=== PATIENT | female | born 1985 | race Caucasian/White ===

== ENCOUNTER 2017-06-20 12:41 | Outpatient (CLI) | payer BC ==
[2017-06-20 13:16] LABS: APPEARANCE,URINE SLIGHTLY-CLOUDY; BILIRUBIN,URINE NEGATIVE (NEGATIVE); COLOR,URINE YELLOW; GLUCOSE, URINE NEGATIVE (NEGATIVE); KETONES,URINE 20 mg/dL (NEGATIVE); LEUKOCYTE ESTERASE,URINE TRACE (NEGATIVE); NITRITE,URINE NEGATIVE (NEGATIVE); PROTEIN,URINE NEGATIVE (NEGATIVE); URINE SPECIFIC GRAVITY 1.013; UROBILINOGEN,URINE NEGATIVE mg/dL (<2.0)
[2017-06-20 13:30] LABS: URINE AMPHETAMINES SCREEN NEGATIVE; URINE BARBITURATES SCREEN NEGATIVE; URINE BENZODIAZEPINES SCREEN NEGATIVE; URINE COCAINE SCREEN NEGATIVE; URINE MARIJUANA (THC) SCREEN NEGATIVE; URINE METHADONE SCREEN NEGATIVE; URINE PHENCYCLIDINE SCREEN NEGATIVE
[2017-06-20 13:33] LABS: ABSOLUTE LYMPHOCYTES (AUTO) 1.2 10^3/uL (0.5-4.7); ABSOLUTE MONOCYTES (AUTO) 0.6 10^3/uL (0.1-1.4); BASOPHILS % (AUTO) 0.2 % (0-2); HEMATOCRIT 37.5 % (36.0-47.0); LYMPHOCYTES % (AUTO) 10.7 % (13-45); MEAN CORPUSCULAR HEMOGLOBIN 31.3 pg (27.0-33.4); MEAN CORPUSCULAR HGB CONC 34.8 g/dL (32.0-36.0); MEAN CORPUSCULAR VOLUME 90 fl (80-97); PLATELET COUNT 175 10^3/uL (150-450); RED BLOOD COUNT 4.17 10^6/uL (3.72-5.28); RED CELL DISTRIBUTION WIDTH 12.9 % (11.5-14.0); SEGMENTED NEUTROPHILS % (AUTO) 83.1 % (42-78); TOTAL CELLS COUNTED % (AUTO) 100 %; WHITE BLOOD COUNT 10.9 10^3/uL (4.0-10.5)
[2017-06-20 13:40] LABS: UR PRO/CREAT RATIO RESULT 0.1 mg/mg (0.0-0.2); URINE CREATININE 86.3 mg/dL (16-327); URINE PROTEIN 11.6 mg/dL (<12)
[2017-06-20 13:56] LABS: ALANINE AMINOTRANSFERASE 36 U/L (9-52); ALBUMIN 3.1 g/dL (3.5-5.0); ALKALINE PHOSPHATASE 99 U/L (38-126); ANION GAP 7 (5-19); ASPARTATE AMINO TRANSFERASE 26 U/L (14-36); BILIRUBIN,DIRECT 0.2 mg/dL (0.0-0.4); BILIRUBIN,TOTAL 0.3 mg/dL (0.2-1.3); BLOOD UREA NITROGEN 7 mg/dL (7-20); CALCIUM 8.8 mg/dL (8.4-10.2); CARBON DIOXIDE 22 mmol/L (22-30); CHLORIDE 108 mmol/L (98-107); GLUCOSE 87 mg/dL (75-110); LDH 515 U/L (313-618); POTASSIUM 3.6 mmol/L (3.6-5.0); SODIUM 137.1 mmol/L (137-145); TOTAL PROTEIN 5.6 g/dL (6.3-8.2); URIC ACID 4.3 mg/dL (2.5-6.2)
--- NOTE | 2017-06-20 20:47 | Non Stress Test Report ---
Non Stress Test Datetime Report Generated by CPN: 06/20/2017 20:47 DEMOGRAPHIC EGA NST: 39.6 INDICATION Indication for Study: Diabetes Mellitus MONITORING Time on Monitor: 06/20/2017 12:52 Time off Monitor: 06/20/2017 13:57 NST Duration: 65 NST INTERVENTIONS NST Interventions: PO Hydration; Reposition Patient Physician Notified NST: A.Quinteros, CNM BABY A: [id number] BABY A Movement : Present Contraction Frequency : x1 FHR Baseline : 130 Accelerations : 15X15 Decelerations : None Variability : Moderate 6-25bpm NST Review: Meets Criteria for Reactive NST NST Review and Verified By : poli herrera rn NST Results: Reactive NST REPORT Report Trigger: Send Report
--- NOTE | 2017-06-21 07:03 | Warning Signs in Babies ---
VOD Warning Signs Datetime Report Generated by [facility]: 06/21/2017 07:03 VOD#[id number] -Warning Signs in Babies: Viewed with Parent(s)/Family (06/21/2017 07:02:Nimo Trinidad RN)
== END 2017-06-20 14:07 | disposition home or self-care (01) ==
LOC: LC 12:41
PROVIDERS: ATTEND Obstetrics & Gynecology Gynecology
PROC: 4A1HXCZ Monitoring of Products of Conception, Cardiac Rate, External Approach (ICD-10-PCS; principal; 2017-06-20)
DX: O24.419 Gestational diabetes mellitus in pregnancy, unspecified control (principal); Z3A.39 39 weeks gestation of pregnancy
CPT/HCPCS: 36415; 59025; 80053; 80307; 81001; 82570; 83615; 84156; 84550; 85025

== ENCOUNTER 2017-06-20 21:19 | Inpatient (IN) | payer BC ==
[2017-06-20] MEDS ORDERED: RINGERS SOLUTION,LACTATED 1,000 ML IV PRN (21:21)
[2017-06-20] MEDS ORDERED: DINOPROSTONE 10 MG VAGINAL INSERT.SR PV PRN (21:21)
[2017-06-20] MEDS ORDERED: OXYTOCIN/NORMAL SALINE 20 UNIT/1,000 ML RTUINJ IV PRN (21:21)
[2017-06-20] MEDS ORDERED: RINGERS SOLUTION,LACTATED 300 ML IV ONE (21:21)
[2017-06-20 22:07] LABS: HEMATOCRIT 37.2 % (36.0-47.0); MEAN CORPUSCULAR HEMOGLOBIN 31.7 pg (27.0-33.4); MEAN CORPUSCULAR HGB CONC 34.9 g/dL (32.0-36.0); MEAN CORPUSCULAR VOLUME 91 fl (80-97); PLATELET COUNT 182 10^3/uL (150-450); RED CELL DISTRIBUTION WIDTH 12.8 % (11.5-14.0)
[2017-06-20 22:08] LABS: APPEARANCE,URINE TURBID; BILIRUBIN,URINE NEGATIVE (NEGATIVE); COLOR,URINE YELLOW; GLUCOSE, URINE NEGATIVE (NEGATIVE); KETONES,URINE NEGATIVE (NEGATIVE); LEUKOCYTE ESTERASE,URINE MODERATE (NEGATIVE); NITRITE,URINE NEGATIVE (NEGATIVE); PROTEIN,URINE 100 mg/dL (NEGATIVE); URINE SPECIFIC GRAVITY 1.015; UROBILINOGEN,URINE NEGATIVE mg/dL (<2.0)
[2017-06-20] MEDS ORDERED: DINOPROSTONE 10 MG VAGINAL INSERT.SR ONE (22:39)
[2017-06-20 23:05] LABS: URINE AMPHETAMINES SCREEN NEGATIVE; URINE BARBITURATES SCREEN NEGATIVE; URINE BENZODIAZEPINES SCREEN NEGATIVE; URINE COCAINE SCREEN NEGATIVE; URINE MARIJUANA (THC) SCREEN NEGATIVE; URINE METHADONE SCREEN NEGATIVE; URINE PHENCYCLIDINE SCREEN NEGATIVE
[2017-06-21] MEDS ORDERED: MISOPROSTOL 0.2 MG TABLET ONE (01:04)
[2017-06-21] MEDS ORDERED: LIDOCAINE 1% INJ-PF (10 MG/ML) 30 ML SDV ONE (01:05)
[2017-06-21] MEDS ORDERED: OXYTOCIN/NORMAL SALINE 20 UNIT/1,000 ML RTUINJ ONE (01:05)
[2017-06-21] MEDS ORDERED: BUPIVACAINE HCL 0.25 % INJ/PF (2.5 MG/1 ML) 30 ML VIAL ONE (01:06)
[2017-06-21] MEDS ORDERED: FENTANYL/BUPIVACAINE/NS/PF 200 MCG/100 ML RTUINJ EPI ONE (01:06)
[2017-06-21] MEDS ORDERED: EPHEDRINE SULFATE INJ 50 MG/1 ML AMPULE ONE (01:06)
[2017-06-21] MEDS ORDERED: DIPH/PERTUSS(ACELL)/TETANUS VAC/PF 0.5 ML SYR (>=10YO) IM PRN (03:45)
[2017-06-21] MEDS ORDERED: ACETAMINOPHEN WITH CODEINE #3 TABLET PO PRN (03:45)
[2017-06-21] MEDS ORDERED: GLYCERIN/WITCH HAZEL LEAF 1 EACH MED..PAD TP PRN (03:45)
[2017-06-21] MEDS ORDERED: OXYTOCIN/NORMAL SALINE 20 UNIT/1,000 ML RTUINJ IV PRN (03:45)
[2017-06-21] MEDS ORDERED: PSEUDOEPHEDRINE HCL 30 MG TABLET PO PRN (03:45)
[2017-06-21] MEDS ORDERED: ZOLPIDEM TARTRATE 5 MG TABLET PO PRN (03:45)
[2017-06-21] MEDS ORDERED: PROMETHAZINE HCL 25 MG TABLET PO PRN (03:45)
[2017-06-21] MEDS ORDERED: PROMETHAZINE HCL 25 MG SUPP.RECT PR PRN (03:45)
[2017-06-21] MEDS ORDERED: DIBUCAINE 1% OINTMENT 28 GM TP PRN (03:45)
[2017-06-21] MEDS ORDERED: NA PHOS,M-B/NA PHOS,DI-BA (ADULT) 133 ML ENEMA PR PRN (03:45)
[2017-06-21] MEDS ORDERED: BENZOCAINE/MENTHOL AEROSOL SPRAY 56 ML TOP PRN (03:45)
[2017-06-21] MEDS ORDERED: MAGNESIUM HYDROXIDE SUSP 30 ML UDCUP PO PRN (03:45)
[2017-06-21] MEDS ORDERED: PROMETHAZINE HCL INJ 25 MG/1 ML VIAL IV PRN (03:45)
[2017-06-21] MEDS ORDERED: MEASLES,MUMPS&RUBELLA VACC/PF 0.5 ML VIAL SUBCUT PRN (03:45)
[2017-06-21] MEDS ORDERED: DIPHENHYDRAMINE HCL 25 MG CAPSULE PO PRN (03:45)
[2017-06-21] MEDS ORDERED: ACETAMINOPHEN 650 MG SUPP.RECT PR PRN (03:45)
[2017-06-21] MEDS: IBUPROFEN 800 MG TABLET PO SCH ×3 (06:17→22:04)
[2017-06-21] MEDS ORDERED: IBUPROFEN 800 MG TABLET ONE (06:17)
[2017-06-21] MEDS ORDERED: PRENATAL VITAMIN W DHA CAPSULE PO SCH (10:00)
[2017-06-21] MEDS ORDERED: PRENATAL VITAMIN W DHA CAPSULE PO ONE (11:22)
[2017-06-21] MEDS ORDERED: SENNOSIDES/DOCUSATE 8.6-50 MG 1 EACH TABLET ONE (11:22)
[2017-06-21] MEDS ORDERED: DOCUSATE SODIUM 100 MG CAPSULE ONE (11:23)
[2017-06-21] MEDS ORDERED: FAMOTIDINE 20 MG TABLET ONE (11:23)
[2017-06-21] MEDS ORDERED: FERROUS SULFATE 325 MG TABLET PO ONE (11:24)
[2017-06-21] MEDS: PRENATAL VITAMIN W DHA CAPSULE PO SCH (11:31)
[2017-06-21] MEDS: FAMOTIDINE 20 MG TABLET PO SCH ×2 (11:31→22:05)
[2017-06-21] MEDS: FERROUS SULFATE 325 MG TABLET PO SCH ×2 (11:32→17:49)
[2017-06-21] MEDS: SENNOSIDES/DOCUSATE 8.6-50 MG 1 EACH TABLET PO SCH (11:32)
[2017-06-21] MEDS: DOCUSATE SODIUM 100 MG CAPSULE PO SCH ×2 (11:32→17:49)
--- NOTE | 2017-06-21 12:41 | Admission Physical ---
Datetime Report Generated by CPN: 06/21/2017 12:40 CURRENT ADMISSION Chief Complaint: Uterine Contractions Indication for Induction: Post Dates Indication for Induction: Term, Intrauterine Admit Plan: Initiate Labor Protocol ALLERGIES Medication Allergies: Yes Medication Allergies: amoxicillin/Hives (06/20/2017) Latex: No Latex Allergies Food Allergies: N/A Environmental Allergies: N/A OBSTETRICAL HISTORY EDC: 06/21/2017 00:00 : 1 Para: 0 Term: 0 : 0 SAB: 0 IAB: 0 Ectopic: 0 Livin Cesareans: 0 VBACs: 0 Multiple Births: 0 Gestational Diabetes: Yes Rh Sensitization: No Incompetent Cervix: No GLADIS: No Infertility: No ART Treatment: No Uterine Anomaly: No IUGR: No Hx Previous C/S: No Macrosomia: No Hx Loss/Stillborn: No PIH: No Hx : No Placenta Previa/Abruption: No Depression/PP Depression: No PTL/PROM: No Post Hemorrhage: No Current Procedures: Ultrasound; NST Obstetrical History Comments: G1 - Current , GDM diet controlled SEE RECORDS Alcohol: No Marijuana : No Cocaine: No Other Illicit Drugs: No Cigarettes: Never Smoker. [id number] MEDICAL HISTORY Diabetes: Yes Diabetes Type: Gestational Diabetes Blood Transfusion: No Pulmonary Disease (Asthma, TB): No Breast Disease: No Hypertension: No Service Associate Surgery: No Heart Disease: No Hosp/Surgery: Yes Autoimmune Disorder: No Anesthetic Complications: No Kidney Disease: No Abnormal Pap Smear: No Neuro/Epilepsy: No Psychiatric Disorders: No Other Medical Diseases: No Hepatitis/Liver Disease: No Significant Family History: No Varicosities/Phlebitis: No Trauma/Violence : No Thyroid Dysfunction: No Medical History Comments: 2000 - cyst removed INFECTIOUS HISTORY Gonorrhea: No Genital Herpes: No Chlamydia: No Tuberculosis: No Syphilis: No Hepatitis: No HIV/AIDS Exposure: No Rash or Viral Illness: No HPV: No PHYSICAL EXAM General: Normal HEENT: Normal Neurologic: Normal Thyroid: Normal Heart: Normal Lungs: Normal Breast: Deferred Back: Normal Abdomen: Normal Genitourinary Exam: Normal Extremities: Normal DTRs: Normal Pelvic Type: Adequate MEMBRANES Membranes: Ruptured FETUS A EGA: 40.0 Monitoring: External US Decelerations: None Presentation: Vertex PLANS FOR LABOR AND DELIVERY Labor and Delivery: None Pain Management: Epidural Feeding Preference: Breast Benefit of Breast Feed Discussed: Yes Circumcision: Yes INFORMED CONSENT Signature: with User ID: [email or web address]
[2017-06-22] MEDS: IBUPROFEN 800 MG TABLET PO SCH ×3 (06:39→21:57)
[2017-06-22 08:31] LABS: HEMATOCRIT 29.1 % (36.0-47.0); MEAN CORPUSCULAR HEMOGLOBIN 31.7 pg (27.0-33.4); MEAN CORPUSCULAR HGB CONC 34.5 g/dL (32.0-36.0); MEAN CORPUSCULAR VOLUME 92 fl (80-97); PLATELET COUNT 146 10^3/uL (150-450); RED BLOOD COUNT 3.16 10^6/uL (3.72-5.28); RED CELL DISTRIBUTION WIDTH 12.9 % (11.5-14.0); WHITE BLOOD COUNT 9.6 10^3/uL (4.0-10.5)
--- NOTE | 2017-06-22 08:43 | PDOC PROGRESS REPORT ---
Subjective-OB Progress Note for:: 06/22/17 Physical Exam (OB) Vital Signs: Temp Pulse Resp BP Pulse Ox 98.3 F 82 19 130/83 H 97 06/21/17 19:38 06/21/17 19:38 06/21/17 19:38 06/21/17 19:38 06/21/17 19:38 Intake & Output 06/21/17 06/22/17 06/23/17 06:59 06:59 06:59 Intake Total 840 Balance 840 Weight 84.7 kg - PIH/Pre-Eclampsia Clonus: Negative Headache: Absent Epigastric Pain: No Visual Changes: No - Lochia Lochia Amount: Small 10-25 ml Lochia Color: Rubra/Red - Abdomen Description: Soft, Round Hernia Present: No Bowel Sounds: Normoactive Flatus Presence: Present Stool: No Fundal Description: Firm Fundal Height: u/u - u/2 Objective-Diagnostic Laboratory: 06/22/17 07:58 06/22/17 07:58 WBC 9.6 RBC 3.16 L Hgb 10.0 L D Hct 29.1 L MCV 92 MCH 31.7 MCHC 34.5 RDW 12.9 Plt Count 146 L
[2017-06-22] MEDS: DOCUSATE SODIUM 100 MG CAPSULE PO SCH ×2 (10:02→17:41)
[2017-06-22] MEDS: FERROUS SULFATE 325 MG TABLET PO SCH ×2 (10:02→17:42)
[2017-06-22] MEDS: PRENATAL VITAMIN W DHA CAPSULE PO SCH (10:02)
[2017-06-22] MEDS: FAMOTIDINE 20 MG TABLET PO SCH ×2 (10:02→21:57)
[2017-06-22] MEDS: SENNOSIDES/DOCUSATE 8.6-50 MG 1 EACH TABLET PO SCH (10:03)
[2017-06-23] MEDS: IBUPROFEN 800 MG TABLET PO SCH ×2 (06:01→13:39)
[2017-06-23 07:49] VITALS: BP 125/71
--- NOTE | 2017-06-23 09:05 | PDOC PROGRESS REPORT ---
Subjective-OB Progress Note for:: 06/23/17 Subjective: Ready for discharge. Physical Exam (OB) Vital Signs: Temp Pulse Resp BP Pulse Ox 98.5 F 81 18 125/71 99 06/23/17 07:45 06/23/17 07:45 06/23/17 07:45 06/23/17 07:45 06/23/17 07:45 Intake & Output 06/22/17 06/23/17 06/24/17 06:59 06:59 06:59 Intake Total 840 600 Balance 840 600 - PIH/Pre-Eclampsia Clonus: Negative Headache: Absent Epigastric Pain: No Visual Changes: No - Lochia Lochia Amount: Scant < 10 ml Lochia Color: Rubra/Red - Abdomen Description: Soft, Flat Hernia Present: Yes Bowel Sounds: Normoactive Flatus Presence: Present Stool: No Fundal Description: Firm, Midline Fundal Height: u/u - u/2 Objective-Diagnostic Laboratory: 06/22/17 07:58
--- NOTE | 2017-06-23 09:13 | PDOC DISCHARGE SUMMARY ---
Final Diagnosis Discharge Date: 06/23/17 - Final Diagnosis (1) Delivery normal Is this a current diagnosis for this admission?: Yes (2) GDM (gestational diabetes mellitus) Is this a current diagnosis for this admission?: Yes (3) Is this a current diagnosis for this admission?: Yes Discharge Data - Discharge Medication Prescriptions: Docusate Sodium [Colace 100 mg Capsule] 100 mg PO BID #30 capsule Ferrous Sulfate [Feosol 325 mg Tablet] 325 mg PO BID #60 tablet Home Medications: Vit/Dha [ Multi + Dha Capsule] 1 cap PO DAILY 06/20/17 Docusate Sodium [Colace 100 mg Capsule] 100 mg PO BID #30 capsule 06/23/17 Ferrous Sulfate [Feosol 325 mg Tablet] 325 mg PO BID #60 tablet 06/23/17 Gestational Age: 40.0 wks Reason(s) for Admission: Onset of Labor Intrapartum Procedure(s): Spontaneous Vaginal Delivery Complication(s): Laceration-Vaginal Laceration-Degree: 1st - [place] Data Baby 1 Male at 1 minute: 9 at 5 minutes: 9 Weight: 3.289 kg Home with Mother: Yes Complications: No - Diagnosis Test Laboratory: Temp Pulse Resp BP Pulse Ox 98.5 F 81 18 125/71 99 06/23/17 07:45 06/23/17 07:45 06/23/17 07:45 06/23/17 07:45 06/23/17 07:45 06/20/17 06/20/17 06/22/17 21:30 21:51 07:58 RBC 4.10 3.16 L Hgb 13.0 10.0 L D Hct 37.2 29.1 L Urine Opiates Screen NEGATIVE - Discharge information/Instructions Discharge Activity: Activity As Tolerated, Balance Activity w/Rest, Pelvic Rest , Slowly Increase Activity, No tub bath Discharge Diet: Regular Disposition: HOME, SELF-CARE Follow up with: [facility] in: 4, Weeks
[2017-06-23] MEDS: DOCUSATE SODIUM 100 MG CAPSULE PO SCH (09:59)
[2017-06-23] MEDS: FAMOTIDINE 20 MG TABLET PO SCH (09:59)
[2017-06-23] MEDS: PRENATAL VITAMIN W DHA CAPSULE PO SCH (09:59)
[2017-06-23] MEDS: FERROUS SULFATE 325 MG TABLET PO SCH (10:00)
[2017-06-23] MEDS: SENNOSIDES/DOCUSATE 8.6-50 MG 1 EACH TABLET PO SCH (10:00)
--- NOTE | 2017-07-05 15:28 | Delivery Summary ---
Del Sum A-C Datetime Report Generated by CPN: 07/05/2017 15:28 DELIVERY PERSONNEL DELIVERY PERSONNEL: [id number] Delivery Doctor:: Elijah Mason MD Labor and Delivery Nurse:: Nimo Trinidad RN Labor and Delivery Nurse:: Love Sanchez RN Lead Burner Helper/CHEF MANAGER: Dana Leonardo ST Additional Personnel: : Maira Duque RN MATERNAL INFORMATION Delivery Anesthesia: Epidural Medications After Delivery: Pitocin Drip 20 Units/1000ml NSS Maternal Complications: None LABOR SUMMARY EDC: 06/21/2017 00:00 No. Babies in Womb: 1 Attempted: No Labor Anesthesia: Epidural LABOR INFORMATION Reason for Induction: Post Dates; Maternal Diabetes Onset of Labor: 06/20/2017 23:30 Complete Dilatation: 06/21/2017 02:31 Cervical Ripening Agents: Cervidil Oxytocin: Augmentation Group B Beta Strep: Negative Antibiotics # of Doses: 0 Steroids Given: None Reason Steroids Not Administered: Not Applicable MEMBRANES Membranes Rupture Method: Spontaneous Rupture of Membranes: 06/20/2017 20:30 Length of Rupture (hr): 7.00 Amniotic Fluid Color: Clear Amniotic Fluid Amount: Moderate Amniotic Fluid Odor: Normal STAGES OF LABOR Stage 1 hr: 3 Stage 1 min: 1 Stage 2 hr: 0 Stage 2 min: 59 Stage 3 hr: 0 Stage 3 min: 5 Total Time in Labor hr: 4 Total Time in Labor min: 5 VAGINAL DELIVERY Episiotomy: None Laceration #1: Vaginal Laceration Extension #1: First Degree Laceration Repair: Yes Laceration Repair Note: repaired with 2-0 vicryl Sponge Count Correct: N/A Sharps Count Correct: Yes CSECTION DELIVERY Primary Indication: N/A Secondary Indication: N/A CSection Incidence: N/A Labor: N/A Elective: N/A CSection Incision: N/A BABY A INFORMATION Delivery Date/Time: 06/21/2017 03:30 Method of Delivery: Vaginal Method of Delivery: Vaginal Born in Route : No : N/A Forceps: N/A Vacuum Extraction: N/A Shoulder Dystocia : No PRESENTATION/POSITION BABY A Presentation: Cephalic Cephalic Presentation: Vertex Vertex Position: Right Occipital Anterior Breech Presentation: N/A PLACENTA INFORMATION BABY A Placenta Delivery Time : 06/21/2017 03:35 Placenta Method of Delivery: Spontaneous Placenta Method of Delivery: Spontaneous Placenta Method of Delivery: Spontaneous Placenta Status: Delivered SCORES BABY A Heart Rate 1 min: >100 bpm Resp Effort 1 min: Good Cry Reflex Irritability 1 min: Cough or Sneeze or Pulls Away Muscle Tone 1 min: Active Motion Color 1 min: Body [place], Extremities Blue Resuscitation Effort 1 min: N/A SCORE 1 MIN: 9 Heart Rate 5 min: >100 bpm Resp Effort 5 min: Good Cry Reflex Irritability 5 min: Cough or Sneeze or Pulls Away Muscle Tone 5 min: Active Motion Color 5 min: Body [place], Extremities Blue Resuscitation Effort 5 min: N/A SCORE 5 MIN: 9 INFORMATION BABY A Gestational Age at Delivery: 40.0 Gestational Status: Full Term- 39- 40.6 Weeks Infant Outcome : Liveborn Infant Condition : Stable Sex: Male Infant Sex: Male IDENTIFICATION BABY A Verification Date/Time: 06/21/2017 03:51 ID Band Number: [id number] Mother's Name Verified: Yes Infant RN Verifying : SJohn Carver, RNC _ K. Laura, RN WEIGHT/LENGTH BABY A Infant Birthweight (gm): 3290 Infant Weight (lb): 7 Weight (oz): 4 Length (in): 20.75 Length (cm): 52.71 CORD INFORMATION BABY A No. Cord Vessels: 3 Nuchal Cord : Around Neck x1, Loose Cord Blood Taken: Yes-For Eval (Mom's Blood Type - or O+) Cord Blood Taken: Yes-For Eval (Mom's Blood Type - or O+) Suction: Mouth; Nose ASSESSMENT BABY A Infant Complications: None Physical Findings at Delivery: Molding of the Head Physical Findings- Other: nuchal cord x 1 Respirations: Appears Normal Skin to Skin: Yes Skin to Skin: Yes Skin to Skin: Yes Skin to Skin: Yes Skin to Skin Time (min): 30 Ambulance Dispatcher/ALS Called : No Care By: Filiberto Sanchez RN Transferred To: Remains with Mother BABY B INFORMATION : N/A SIGNATURES Signature: with User ID: [email or web address]
== END 2017-06-23 17:47 | disposition home or self-care (01) | DRG 775 ==
LOC: LR 21:19 → 2N 06-21 12:40
PROVIDERS: ADMIT Obstetrics & Gynecology Gynecology; ATTEND Obstetrics & Gynecology Gynecology
PROC: 4A1HXCZ Monitoring of Products of Conception, Cardiac Rate, External Approach (ICD-10-PCS; 2017-06-20)
PROC: 10E0XZZ Delivery of Products of Conception, External Approach (ICD-10-PCS; principal; 2017-06-21)
DX: O24.420 Gestational diabetes mellitus in childbirth, diet controlled (principal); O48.0 Post-term pregnancy; O70.0 First degree perineal laceration during delivery; O69.81X0 Labor and delivery complicated by cord around neck, without compression, not applicable or unspecified; Z88.1 Allergy status to other antibiotic agents; Z3A.40 40 weeks gestation of pregnancy; Z37.0 Single live birth
CPT/HCPCS: 36415; 80307; 81005; 85027; 86592; 86850; 86900; 86901; 94760; J2590; J3490